=== PATIENT | female | born 1980 | race African-American/Black ===

== ENCOUNTER 2018-03-03 21:28 | Emergency (ER) | payer OTHER ==
[2018-03-03 21:41] VITALS: BMI 33.1
--- NOTE | 2018-03-03 22:28 | PDOC ---
History of Present Illness <Vimal Quiñonez - Last Filed: 03/03/18 22:28> <JulianeHilda - Last Filed: 03/03/18 22:54> - General Chief Complaint: Chronic pain Stated Complaint: HEADACHE, NUMBNESS FACE, EARACHE Time Seen by Provider: 03/03/18 22:27 Past History - Past Medical History COPD: No - Suicide/Smoking/Psychosocial Hx Smoking History: Never smoked Have you smoked in the past 12 months: No Information on smoking cessation initiated: No Hx Alcohol Use: No Drug/Substance Use Hx: No <Vimal Quiñonez - Last Filed: 03/03/18 22:28> <CardozoHilda - Last Filed: 03/03/18 22:54> - Past Medical History Allergies/Adverse Reactions: Allergies Allergy/AdvReac Type Severity Reaction Status Date / Time No Known Allergies Allergy Verified 03/03/18 21:41 *Physical Exam - Vital Signs Last Vital Signs Temp Pulse Resp BP Pulse Ox 98.0 F 119 H 16 151/88 100 03/03/18 21:38 03/03/18 21:38 03/03/18 21:38 03/03/18 21:38 03/03/18 21:38 <Vimal Quiñonez - Last Filed: 03/03/18 22:28> - Vital Signs Last Vital Signs Temp Pulse Resp BP Pulse Ox 98.0 F 119 H 16 151/88 100 03/03/18 21:38 03/03/18 21:38 03/03/18 21:38 03/03/18 21:38 03/03/18 21:38 <CardozoHilda - Last Filed: 03/03/18 22:54> Moderate Sedation - Procedure Monitoring Vital Signs: Procedure Monitoring Vital Signs Temperature 98.0 F 03/03/18 21:38 Pulse Rate 119 H 03/03/18 21:38 Respiratory Rate 16 03/03/18 21:38 Blood Pressure 151/88 03/03/18 21:38 O2 Sat by Pulse Oximetry (%) 100 03/03/18 21:38 <Vimal Quiñonez - Last Filed: 03/03/18 22:28> - Procedure Monitoring Vital Signs: Procedure Monitoring Vital Signs Temperature 98.0 F 03/03/18 21:38 Pulse Rate 119 H 03/03/18 21:38 Respiratory Rate 16 03/03/18 21:38 Blood Pressure 151/88 03/03/18 21:38 O2 Sat by Pulse Oximetry (%) 100 03/03/18 21:38 <Hilda Cardozo - Last Filed: 03/03/18 22:54> Medical Decision Making - Medical Decision Making 03/03/18 22:54 Patient Name: Curry Buckner Date: 1980 Address: [address] [place] [address] [place] [address] Sex: Female Rx Written Rx Dispensed Drug Quantity Days Supply Prescriber Name 02/21/2018 02/22/2018 testosterone cyp 200 mg/ml 2ml 28 Renjuareziro-Caren Panda N 12/27/2017 01/22/2018 testosterone cyp 200 mg/ml 2ml 28 Caren Sherman N 12/27/2017 12/28/2017 testosterone cyp 200 mg/ml 2ml 28 Jose Liro-Caren Panda N 11/15/2017 11/28/2017 testosterone cyp 200 mg/ml 2ml 28 Jose Liro-Caren Panda N 10/18/2017 10/31/2017 testosterone cyp 200 mg/ml 2ml 28 Renjuareziro-Caren Panda N Patient Name: Curry Buckner Date: 1980 Address: [address] [place] [address] Sex: Female Rx Written Rx Dispensed Drug Quantity Days Supply Prescriber Name 10/02/2017 10/02/2017 testosterone cyp 200 mg/ml 2ml 28 Caren Sherman <Hilda Cardozo - James Filed: 03/03/18 22:54>
[2018-03-03] MEDS ORDERED: KETOROLAC TROMETHAMINE 60 MG/2 ML VIAL IM ONE (22:53)
--- NOTE | 2018-03-03 23:04 | PDOC ---
History of Present Illness - General Chief Complaint: Chronic pain Stated Complaint: HEADACHE, NUMBNESS FACE, EARACHE Time Seen by Provider: 03/03/18 22:27 History Source: Patient Exam Limitations: No Limitations - History of Present Illness Initial Comments: 03/03/18 22:52 Patient is a 37 year old depression, anxiety, PTSD, sciatica, migraine, chronic neck pain, disc disease, c/o left sided neck 4 months states he has had cramping in his face, tremors pressure in the left side of his forehead, throbbing aching pain to the parent spinal area of the left cervical, ear ache, tightness in the chest and left arm, muscle spasm poorly and pinching in the shoulder and neck. Patient works as a dedicated truck driver, with heavy lifting. Patient is here today to be reevaluated for the pain. States had MRI in November which shows the extent of his disease. Had had shots to the neck in January but still has no relief of pain. Pain today is is 9/10, spasm-like. He has taken gabapentin and Robaxin today with no relief of symptoms. Numbness and tingling in the left upper extremity. PMD: [facility] Othro: Dr. Acuña ([place]) PMHX: as above PSOCHX: (+) cig 1/2 PPD, occ etoh, neg drug ALL: NKDA GENERAL/CONSTITUTIONAL: [No fever or chills. No weakness. No weight change.] HEAD, EYES, EARS, NOSE AND THROAT: [No change in vision. No ear pain or discharge. No sore throat.] CARDIOVASCULAR: [No chest pain or shortness of breath.] RESPIRATORY: [No cough, wheezing, or hemoptysis.] GASTROINTESTINAL: [No nausea, vomiting, diarrhea or constipation. No rectal bleeding.] GENITOURINARY: [No dysuria, frequency, or change in urination.] MUSCULOSKELETAL: [No joint or muscle swelling or pain. No neck or back pain.] SKIN AND BREASTS: [No rash or easy bruising.] NEUROLOGIC: [No headache, vertigo, loss of consciousness, or loss of sensation.] PSYCHIATRIC: (+) depression or anxiety.] ENDOCRINE: [No increased thirst. No abnormal weight change.] HEMATOLOGIC/LYMPHATIC: [No anemia, easy bleeding, or history of blood clots.] ALLERGIC/IMMUNOLOGIC: [No hives or skin allergy. No latex allergy.] GENERAL: [The patient is awake, alert, and fully oriented, in no acute distress. ] HEAD: [Normal with no signs of trauma.] EYES: [Pupils equal, round and reactive to light, extraocular movements intact, sclera anicteric, conjunctiva clear.] ENT: [Ears normal, nares patent, oropharynx clear without exudates. Moist mucous membranes.] NECK: [Normal range of motion, supple without lymphadenopathy, JVD, or masses.] LUNGS: [Breath sounds equal, clear to auscultation bilaterally. No wheezes, and no crackles.] HEART: [Regular rate and rhythm, normal S1 and S2 without murmur, rub.] ABDOMEN: [Soft, nontender, normoactive bowel sounds. No guarding, no rebound. No masses.] EXTREMITIES: [Normal range of motion, no edema. No clubbing or cyanosis. No cords, erythema, or tenderness.] NEUROLOGICAL: [Cranial nerves II through XII grossly intact. Normal speech, normal gait.] PSYCH: [Normal mood, normal affect.] SKIN: [Warm, Dry, normal turgor, no rashes or lesions noted.] Past History - Past Medical History Allergies/Adverse Reactions: Allergies Allergy/AdvReac Type Severity Reaction Status Date / Time No Known Allergies Allergy Verified 03/03/18 21:41 COPD: No - Suicide/Smoking/Psychosocial Hx Smoking History: Never smoked Have you smoked in the past 12 months: No Information on smoking cessation initiated: No Hx Alcohol Use: No Drug/Substance Use Hx: No *Physical Exam - Vital Signs Last Vital Signs Temp Pulse Resp BP Pulse Ox 98.0 F 119 H 16 151/88 100 03/03/18 21:38 03/03/18 21:38 03/03/18 21:38 03/03/18 21:38 03/03/18 21:38 Moderate Sedation - Procedure Monitoring Vital Signs: Procedure Monitoring Vital Signs Temperature 98.0 F 03/03/18 21:38 Pulse Rate 119 H 03/03/18 21:38 Respiratory Rate 16 03/03/18 21:38 Blood Pressure 151/88 03/03/18 21:38 O2 Sat by Pulse Oximetry (%) 100 03/03/18 21:38 Medical Decision Making - Medical Decision Making 03/03/18 23:04 03/03/18 22:52 Patient is a 37 year old sciatica, migraine, chronic neck pain, disc disease, c/ o left sided neck 4 months states he has had cramping in his face, tremors pressure in the left side of his forehead, throbbing aching pain to the parent spinal area of the left cervical, ear ache, tightness in the chest and left arm , muscle spasm poorly and pinching in the shoulder and neck. Patient works as a dedicated truck driver, with heavy lifting. Patient is here today to be reevaluated for the pain. States had MRI in November which shows the extent of his disease. Had had shots to the neck in January but still has no relief of pain. Pain today is is 9/10, spasm-like. He has taken gabapentin and Robaxin today with no relief of symptoms. Numbness and tingling in the left upper extremity. Symptoms are consistent with radicular pain we'll treat symptomatically. Patient will follow-up with orthopedic surgeon. Has an appointment for but with walk in tommorrow. Toradol and percocet Selected Entries 03/04/18 00:12 Temperature 98.1 F Pulse Rate [ 86 Right Radial] Respiratory 17 Rate Blood Pressure 127/77 [Left Arm] O2 Sat by Pulse 99 Oximetry (%) 03/03/18 23:59 I discussed the physical exam findings, ancillary test results and final diagnoses with the patient. I answered all of the patient's questions. The patient was satisfied with the care received and felt comfortable with the discharge plan and treatment plan. The Patient agrees to follow up with the primary care physician within 24-72 hours. *DC/Admit/Observation/Transfer Diagnosis at time of Disposition: Cervical radiculopathy - Discharge Dispostion Disposition: HOME Condition at time of disposition: Stable - Referrals - Patient Instructions Printed Discharge Instructions: DI for Cervical Radiculopathy Additional Instructions: Your Discharge Instructions: You must call primary care physician within 24 hours to arrange follow-up. Return to the Emergency Department with any new, persistent or worsening symptoms, for fever, chills, SOB, dizziness or any other concerning changes that may occur. He was follow-up with her orthopedic spine surgeon tomorrow for further treatment and management. - Post Discharge Activity
[2018-03-03] MEDS ORDERED: KETOROLAC TROMETHAMINE 60 MG/2 ML VIAL ONE (23:35)
[2018-03-04 00:13] VITALS: BP 127/77; PULSE 86; TEMP 98.1
== END 2018-03-04 00:20 | disposition home or self-care (01) ==
LOC: JER 21:28
PROC: 3E0233Z Introduction of Anti-inflammatory into Muscle, Percutaneous Approach (ICD-10-PCS; principal; 2018-03-03)
DX: M54.12 Radiculopathy, cervical region (principal)
CPT/HCPCS: 99283-25

== ENCOUNTER 2018-07-28 22:44 | Emergency (ER) | payer OTHER ==
[2018-07-28 23:09] VITALS: BP 119/82; PULSE 95; TEMP 98.8; BMI 31.7
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
[2018-07-29] MEDS ORDERED: IBUPROFEN 600 MG TABLET (FP) PO ONE ×2 (01:35→01:49)
== END 2018-07-29 01:40 | disposition home or self-care (01) ==
LOC: JER 22:44
PROC: 0HQGXZZ Repair Left Hand Skin, External Approach (ICD-10-PCS; principal; 2018-07-28)
DX: M54.12 Radiculopathy, cervical region (principal); S61.217A Laceration without foreign body of left little finger without damage to nail, initial encounter; X99.1XXA Assault by knife, initial encounter; Y93.89 Activity, other specified; Y92.098 Other place in other non-institutional residence as the place of occurrence of the external cause; Y99.8 Other external cause status; Y07.9 Unspecified perpetrator of maltreatment and neglect
CPT/HCPCS: 12001-25; 99282-25

== ENCOUNTER 2018-08-06 17:46 | Emergency (ER) | payer OTHER | END 2018-08-06 18:18 | disposition home or self-care (01) | LOC: JERFT 17:46 ==